=== PATIENT | female | born 1940 | race Caucasian/White ===

== ENCOUNTER 2022-10-22 08:08 | Day surgery (SDC) | payer BC ==
[2022-10-22] VITALS (11 sets, daily range): BP systolic 119–151; BP diastolic 56–71
[~2022-10-22] VITALS: Ht 157.5 cm; Wt 74.5 kg
[2022-10-22] MEDS ORDERED: normal saline 1,000 ML IV SCH (08:50)
[2022-10-22] MEDS ORDERED: diphenhydrAMINE 25mg capsule PO PRN (08:50)
[2022-10-22] MEDS ORDERED: LORazepam 0.5 MG tablet PO PRN (08:50)
[2022-10-22] MEDS ORDERED: nitroGLYCERIN 0.4mg SUBLingual tab SL PRN ×2 (08:55→13:10)
[2022-10-22] MEDS ORDERED: LEVO50TA8 PO (09:15)
[2022-10-22] MEDS ORDERED: CETI-194 PO (09:15)
[2022-10-22] MEDS ORDERED: VIT1CAPS9 PO (09:15)
[2022-10-22] MEDS ORDERED: DILT300C51 PO (09:15)
[2022-10-22] MEDS ORDERED: ASPI81TA52 PO (09:15)
[2022-10-22] MEDS ORDERED: LOSA1TAB41 PO (09:15)
[2022-10-22] MEDS ORDERED: CHOL20002 PO (09:16)
[2022-10-22] MEDS ORDERED: BIOT5000 PO (09:16)
[2022-10-22] MEDS ORDERED: ACET-2119 PO (09:18)
[2022-10-22] MEDS ORDERED: midazolam 1 mg/ML 2ml injection ONE (11:39)
[2022-10-22] MEDS ORDERED: fentaNYL/PF 50MCG/1 ML 2ML syringe ONE (11:40)
[2022-10-22] MEDS ORDERED: iohexol 350 MG/ML 50ML vial IV ONE (11:40)
[2022-10-22] MEDS ORDERED: LIDOcaine 1% 30ml preserv. free vial ONE (11:40)
[2022-10-22] MEDS ORDERED: iohexol 350MG/ML 100ml bottle IV ONE (11:40)
[2022-10-22] MEDS ORDERED: hydrALAZINE 20mg/ml inj. IV ONE (12:35)
[2022-10-22] MEDS ORDERED: ondansetron/PF 4mg/2ml inj IV PRN (13:05)
[2022-10-22] MEDS ORDERED: HYDROcodone/acetaminophen 10/325mg tab PO PRN (13:10)
[2022-10-22] MEDS ORDERED: HYDROcodone/acetaminophen 5mg/325mg tablet PO PRN (13:10)
[2022-10-22] MEDS ORDERED: OXAZEpam 15mg capsule PO PRN (13:10)
[2022-10-22] MEDS ORDERED: proCHLORperazine 10 MG/2 ml inj IV PRN (13:10)
== END 2022-10-22 18:25 | disposition home or self-care (01) ==
LOC: SSTAY O 08:08
PROVIDERS: ATTEND Internal Medicine Cardiovascular Disease
DX: R94.39 Abnormal result of other cardiovascular function study (principal); I25.10 Atherosclerotic heart disease of native coronary artery without angina pectoris; I10 Essential (primary) hypertension; E78.5 Hyperlipidemia, unspecified; F06.70 Mild neurocognitive disorder due to known physiological condition without behavioral disturbance; Z86.16 Personal history of COVID-19; Z88.2 Allergy status to sulfonamides; Z88.5 Allergy status to narcotic agent; Z88.8 Allergy status to other drugs, medicaments and biological substances; Z98.41 Cataract extraction status, right eye; Z98.42 Cataract extraction status, left eye; Z98.890 Other specified postprocedural states; Z90.49 Acquired absence of other specified parts of digestive tract; Z87.891 Personal history of nicotine dependence; Z79.899 Other long term (current) drug therapy
CPT/HCPCS: 93005; 93458; 99152; C1760; C1769; J0360; J1644; J2250; J2405; J3010; J3490; J7030; Q0163; Q9967; 99153